=== PATIENT | female | born 1925 | race Caucasian/White ===

== ENCOUNTER 2016-05-03 19:24 | Emergency (ER) | payer MEDICARE ==
[~2016-05-03 19:24] MED LIST: AMLO5TAB2 PO; ASPI-973 PO; CHOL10008 PO; LOSA50TA37 PO; MAGN64TA7 PO; METO25TA6 PO; MULT1TAB11 PO; NITR0.4T SL; OMEG-38 PO; OMEP20TA86 PO; SERT100T PO; SIMV40TA2 PO
[2016-05-03 19:36] VITALS: BP 170/75; PULSE 70; RESP 18; O2SAT 98
[2016-05-03 20:36] LABS: EOSINOPHILS % (AUTO) 5.3 % (0-5); MONOCYTES % (AUTO) 9.3 % (4-12); Mean Corpuscular Hemoglobin 31.1 pg (27.0-35.0); Mean Corpuscular Volume 92.9 fL (81-100); NEUTROPHILS % (AUTO) 53.3 % (40-74); Platelet Count 286 bil/L (150-400)
[2016-05-03 21:01] LABS: TROPONIN T < 0.010 ug/L (0.0-0.011)
--- NOTE | 2016-05-03 21:07 | ED.REPORT ---
HPI-General Illness Date of Service May 03, 2016 ED Provider: Gee Purcell MD Patient is a 89 year old female with a history of hypertension, coronary artery disease, GERD, and arthritis who presents to the ED due to generalized weakness that began this afternoon, worsening in severity over the course of day. Patient states that her weakness was gradual in onset. Patient denies any numbness or weakness of her extremities. Patient denies a facial droop, diplopia , decreased vision, or difficulty speaking. The patient ambulates with a walker and is usually able to ambulate on her own, however today she could not do so. Patient admits that she has not been eating well for the past few days, but has been drinking fluids. The patient lives with her , who has Parkinson's Disease and is currently on dialysis. The patient's daughter, who accompanied her to the ED tonight, lives next door to the patient and helps her a lot at home. She admits that she is currently constipated, only producing very hard stool. Patient denies dysuria, increased urination, cough, fever, shortness of breath, nausea, vomiting, diarrhea, or abdominal pain. Nursing Notes Stated Complaint: WEAKNESS Chief Complaint: General Complaint Nursing Notes Reviewed: Yes Allergies: Coded Allergies: nizatidine (Verified Allergy, Intermediate, Hallucinations, 12/12/14) Scheduled Amlodipine (Amlodipine) 5 Mg Tablet 5 MG PO DAILY Aspirin (Aspirin) 81 Mg Tablet 81 MG PO DAILY Atorvastatin (Lipitor) 40 Mg Tablet 40 MG PO HS Cholecalciferol (Vitamin D3) (Vitamin D3) 1,000 Unit Tab.chew Unknown Dose PO DAILY Lansoprazole ODT (Prevacid ODT) 15 Mg Tablet 15 MG PO DAILY Losartan Potassium (Losartan Potassium) 50 Mg Tablet 50 MG PO DAILY Magnesium Chloride (Mag64) 64 Mg Tablet.er 128 MG PO DAILY Metoprolol Tartrate (Metoprolol Tartrate) 25 Mg Tablet 25 MG PO QAM Metoprolol Tartrate (Metoprolol Tartrate) 25 Mg Tablet 12.5 MG PO QPM Mirtazapine (Mirtazapine) 7.5 Mg Tablet 7.5 MG PO HS Multivit-Min/FA/Lutein/Zeaxant (Icaps Mv Tablet) 1 Each Tablet.dr 1 EACH PO DAILY Nitroglycerin SL (Nitrostat) 0.4 Mg Tab.subl 0.4 MG SL Q5MIN Sertraline HCl (Zoloft) 100 Mg Tablet 50 MG PO DAILY General Time Seen by MD: 21:03 Chief Complaint Weakness Hx Obtained From: Patient, Daughter Arrived By: Walk-in Sudden in Onset?: No Onset Occurred: 5 - 8 hours ago Symptom Duration: Since onset Severity: Current: No pain currently Severity: Maximum: No pain Recent Healthcare: No recent doctor visit, No recent hospitalization Similar Sx Previous: No Past Medical History Past Medical History coronary artery disease, with chronic total occlusion of the RCA and and proximal LAD, no intervention indicated May 2010 arthritis Reports: GERD, Hyperlipidemia, Hypertension Past Surgical History cardiac catheterization Reports: Hysterectomy Smoking History Former Smoker Social History Other Social History: Good social support, , Local resident Ambulatory Status Independent Review of Systems + decreased appetite and PO intake Full Review of Systems Constitutional: Reports: Weakness - generalized, Denies: Fever Eyes: Denies: Diplopia, Visual loss bilateral Respiratory: Denies: Non-productive cough, Shortness of breath GI: Reports: Constipation, Denies: Abdominal pain, Diarrhea, Nausea, Vomiting Female: Denies: Dysuria, Urination increased Neurologic: Denies: Numbness, Unable to speak, Weakness Complete sys rev & neg: except as marked. Physical Exam Vital Signs Vital Signs Date Time Temp Pulse Resp B/P Pulse Ox O2 Delivery O2 Flow Rate FiO2 05/04/16 01:04 36.5 77 18 128/48 93 Room Air 05/03/16 19:36 36.4 70 18 170/75 98 Room Air Initial VS: Reviewed, Vital signs normal Skin: Warm, Dry, No cyanosis Psychiatric: Mood/affect normal, Behavior normal, Normal thought content General/Constitutional: Awake, Alert, No acute distress, Well hydrated Head / Eyes: Atraumatic, Normocephalic, PERRL ENT: Airway patent, Mucous membranes moist Neck: Supple, No JVD Respiratory / Chest: Breath sounds NL, Breath sounds = bilat, No respiratory distress, No rales, No rhonchi, No wheezing Cardiovascular: Heart rate NL, Regular rhythm, Heart sounds NL, No murmurs Abdomen: Soft, Non-tender, No guarding, No rebound Upper Extremities Upper Extremity / MS: No swelling, No edema Lower Extremity / Pelvis / MS: No swelling, No edema Neurologic: Oriented X3, Speech NL, No sensory deficits, CN II - XII intact, Cerebellar NL Movement Abnormality: Positive: Tremor - intention (coarse and rhythmic) Interpretation & Diagnostics Lab Results Interpretation Result Diagram: 05/03/16 2018 05/03/16 2018 Test 05/03/16 20:18 05/03/16 23:15 White Blood Count 7.7th/mm3 (3.8-10.1) Red Blood Count 4.34mil/mm3 (3.90-5.20) Hemoglobin 13.5g/dL (12.0-15.6) Hematocrit 40.3% (35.0-46.0) Mean Corpuscular Volume 92.9fL (81-100) Mean Corpuscular Hemoglobin 31.1pg (27.0-35.0) Mean Corpuscular Hemoglobin Concent 33.5% (32.0-37.0) Red Cell Distribution Width 12.5% (12.3-15.4) Platelet Count 286bil/L (150-400) Neutrophils (%) (Auto) 53.3% (40-74) Lymphocytes (%) (Auto) 30.8% (14-46) Monocytes (%) (Auto) 9.3% (4-12) Eosinophils (%) (Auto) 5.3% (0-5) Basophils (%) (Auto) 1.0% (0-3) Sodium Level 141mEq/L (134-144) Potassium Level 4.4mEq/L (3.5-5.2) Chloride Level 103mEq/L (97-108) Carbon Dioxide Level 23mmol/L (18-29) Blood Urea Nitrogen 29mg/dL (8-27) Creatinine 0.71mg/dL (0.57-1.00) Estimat Glomerular Filtration Rate 111mL/min (>59) Glucose Level 109mg/dL (60-99) Calcium Level 10.3mg/dL (8.5-10.1) Magnesium Level 2.1mg/dL (1.6-2.6) Total Bilirubin 0.2mg/dL (0.0-1.2) Aspartate Amino Transf (AST/SGOT) 22U/L (0-50) Alanine Aminotransferase (ALT/SGPT) 12U/L (0-32) Alkaline Phosphatase 63U/L (25-165) Troponin T < 0.010ug/L (0.0-0.011) Total Protein 6.8g/dL (6.4-8.4) Albumin 4.2g/dL (3.4-5.0) Hold Casanova Top Tube Received (Received) Urine Color Straw (YELLOW) Urine Appearance Hazy (CLEAR,HAZY) Urine pH 5.0 (5.0-8.0) Urine Specific [place] 1.015 (1.003-1.035) Urine Protein Negativemg/dL (NEG,TRACE) Urine Glucose (UA) Negativemg/dL (NEGATIVE) Urine Ketones Negativemg/dL (NEGATIVE) Urine Occult Blood Negative (NEGATIVE) Urine Nitrite Positive (NEGATIVE) Urine Bilirubin Negative (NEGATIVE) Urine Urobilinogen Normalmg/dL (NORMAL) Urine Leukocyte Esterase Trace (NEGATIVE) Urine RBC 0-2/hpf (0-2) Urine WBC 0-5/hpf (0-5) Urine Epithelial Cells Occasional/hpf (NONE-MOD) Urine Crystals None seen (NONE SEEN) Urine Bacteria Moderate/hpf (NONE-FEW) Urine Hyaline Casts Rare/lpf (NONE) Urine Granular Casts None seen (NONE SEEN) Urine Waxy Casts None seen (NONE SEEN) Urine Red Blood Cell Casts None seen (NONE SEEN) Urine White Blood Cell Casts None seen (NONE SEEN) Urine Mucus None seen (None Seen) Urine Trichomonas None seen (NONE SEEN) Urine Yeast None (NONE SEEN) Urinalysis Comment None Urine Culture Reflexed Indicated Lab values outside NL range: no clinical significance. Lab Results Interpretation: Mildly elevated BUN. Urine is normal. ECG Interpretation ECG Interpretation: Sinus rhythm, Rate 85 Probable left ventricular hypertrophy Time: 20:29 Interpreted by: ED physician Normal ECG Interpretation: No acute ischemic changes X-Ray Chest Interpretation Chest Xray Interpretation: Impression: No acute cardiopulmonary process. View: Portable Interpretation / Wet Read by: Wet read ED physician Re-Eval/Medical Decision Med Decision/Clinical Course 89 year old female who presents with mild, generalized weakness with a completely nonfocal physical examination. Entire workup shows some minimal elevation of the BUN/creatinine and no other abnormalities. She is not clinically dehydrated. She does not have urinary tract infection or pneumonia. She is being discharged home with her daughter. She lives with her in a home right next to her daughter's family. There is sufficient family help for a short period of time. She will follow-up with her regular doctor as needed for any persistent symptoms. She will return to the emergency room if she worsens over the weekend. Source of Hx: Old records Time of Eval: 00:29 Patient Status: Condition improved Re-Evaluation/Progress Note: Rechecked the patient. No acute problem was found on EKG, labs, or chest x-ray. Patient feels comfortable returning home with her daughter. Discharge instructions and follow-up discussed. All questions were addressed. Return to the ED warnings given. Counseled Regarding: Diagnosis, Lab results, Need for follow-up, When/why to return to ED Discharge & Departure Primary Impression: Weakness Disposition: Home Discharge Condition All VS Reviewed: Yes Condition: Stable Additional Instructions: There is some very mild dehydration but no other abnormalities noted. There is no urinary tract infection or pneumonia. Rest. Fluids. Call me at [phone] between the hours of 9 PM and 6 AM for the next couple of nights if you have any questions. Return to the emergency room if there is significant worsening. Otherwise see your regular doctor on Friday or Friday if symptoms persist. Referrals: Esperanza Gregg MD (PCP) Scribe Attestation Portions of this note were transcribed by Lacy Stovall. I, Dr. Purcell personally performed the history, physical exam and medical decision-making; I reviewed and confirmed the accuracy of the information in the transcribed note. Signed by: Vicente Cagle, 05/04/2016 0049 copies to: Esperanza Gregg MD, Howard L MD May 03, 2016 21:07 Lacy tSovall May 03, 2016 21:22
[2016-05-03 21:09] LABS: Magnesium 2.1 mg/dL (1.6-2.6)
[2016-05-03] MEDS ORDERED: LIP40 PO (21:17)
[2016-05-03] MEDS ORDERED: LANS15TA3 PO (21:17)
[2016-05-03] MEDS ORDERED: MIRT7.5T8 PO (21:17)
[2016-05-03 23:39] LABS: APPEARANCE,URINE HAZY (CLEAR,HAZY); COLOR,URINE STRAW (YELLOW); OCCULT BLOOD,URINE NEGATIVE (NEGATIVE); UROBILINOGEN,URINE NORMAL (NORMAL)
[2016-05-04 01:04] VITALS: BP 128/48; PULSE 77; RESP 18; O2SAT 93
--- NOTE | 2016-05-04 07:55 | DRSVH ---
PROCEDURE: X-RAY CHEST ONE VIEW, PORTABLE ([id number]) INDICATIONS: generalized weakness TECHNIQUE: One view of the chest was acquired. COMPARISON: [facility], , CHEST 2VW, 07/18/2014, 15:24. FINDINGS: The patient is markedly rotated. Surgical changes and devices: None. Lungs and pleura: Streaky opacities are present at the right apex. Lungs are otherwise clear. No pleu ral effusion or pneumothorax. Mediastinum: Mediastinal contours appear normal. Heart size is normal. Bones and chest wall: No suspicious bony lesions. Overlying soft tissues appear unremarkable. IMPRESSION: Right apical pulmonary radiopacities. It is unclear whether this represents new airspace disease or pulmonary scarring not previously visualized due to differential patient positioning. Lung s are otherwise clear. Lordotic view may be helpful to further characterize findings. Dictated by: Hilda Martinez M.D. on 05/04/2016 at 7:52 Approved by: Hilda Martinez M.D. on 05/04/2016 at 7:53
== END 2016-05-04 01:05 | disposition home or self-care (01) ==
LOC: SED 19:24
DX: R53.1 Weakness (principal); K59.00 Constipation, unspecified; I11.9 Hypertensive heart disease without heart failure; I25.10 Atherosclerotic heart disease of native coronary artery without angina pectoris; K21.9 Gastro-esophageal reflux disease without esophagitis; E78.5 Hyperlipidemia, unspecified; Z95.818 Presence of other cardiac implants and grafts; Z79.82 Long term (current) use of aspirin; Z87.891 Personal history of nicotine dependence; Z88.8 Allergy status to other drugs, medicaments and biological substances